=== PATIENT | male | born 1975 | race African-American/Black ===

== ENCOUNTER 2021-07-17 09:54 | Emergency (ER) | payer OTHER ==
[~2021-07-17] VITALS: Ht 175.3 cm; Wt 104.3 kg
[2021-07-17 10:02] VITALS: BP 135/65
--- NOTE | 2021-07-17 10:04 | NUR ---
PT TO WAIT IN LOBBY.
--- NOTE | 2021-07-17 10:13 | NUR ---
PT AMBULATED TO ER BED 9.
--- NOTE | 2021-07-17 10:16 | NUR ---
46 Y/O MALE C/O LEFT HAND PAIN 07/19 DESCRIBES ACHING WORST WITH EXERTION X3DAYS. PT STATES HE WAS WORKING OUT X3DAYS AND FELT "A PINCH" WHEN LIFTING WEIGHTS. DENIES N/V, DENIES FEVER/CHILLS. DENIES PMH NKA
--- NOTE | 2021-07-17 10:16 | NUR ---
DR. LOJA WITH PT FOR FURTHER EVALUATION.
[2021-07-17] MEDS ORDERED: KETOROLAC 30 MG/ML VIAL IM ONE (10:20)
--- NOTE | 2021-07-17 10:27 | NUR ---
BRIDGE PAINTER AT PT BEDSIDE.
--- NOTE | 2021-07-17 11:04 | NUR ---
Report and continuation of care received from CURTIS More.
--- NOTE | 2021-07-17 11:04 | NUR ---
GAVE REPORT TO CURTIS PERES. TRANSFER OF CARE AT THIS TIME.
[2021-07-17] MEDS ORDERED: IBUP-2213 PO (11:14)
[2021-07-17 11:19] VITALS: BP 135/65
== END 2021-07-17 11:19 | disposition home or self-care (01) ==
LOC: MED 09:54
DX: S60.222A Contusion of left hand, initial encounter (principal); X50.0XXA Overexertion from strenuous movement or load, initial encounter; Y93.89 Activity, other specified; Y92.89 Other specified places as the place of occurrence of the external cause; Y99.8 Other external cause status
CPT/HCPCS: 73130; 99283; J1885; Q0092